=== PATIENT | male | born 1930 | race Caucasian/White ===

== ENCOUNTER 2017-11-01 20:32 | Emergency (ER) | payer MEDICARE, BC ==
[~2017-11-01] VITALS: Ht 180.3 cm; Wt 86.4 kg
[2017-11-01 20:41] VITALS: Ht 180.3 cm; Wt 86.4 kg
[2017-11-01] MEDS ORDERED: ULTRAM50 MG PO (20:45)
[2017-11-01] MEDS ORDERED: METHOTREXATE2.5 MG PO (20:46)
[2017-11-01] MEDS ORDERED: FOLIC ACID1 MG PO (20:46)
[2017-11-01 21:56] LABS: BASOPHILS 1.1 % (0-2); EOSINOPHILS 2.7 % (0-7); HEMATOCRIT 37.8 % (42.0-54.0); HEMOGLOBIN 12.6 g/dL (13.5-17.5); IMMATURE GRANULOCYTES 0.3 % (0-5); LYMPHOCYTES 24.9 % (15-50); MCHC 33.3 g/dL (31.0-37.0); MEAN PLATELET VOLUME 9.1 fL (7.4-10.4); MONOCYTES 13.9 % (2-11); NEUTROPHILS 57.1 % (40-80); PLATELET COUNT 117 10x3/uL (130-400); RBC 3.82 10x6/uL (4.20-6.10); RDW 13.4 % (11.5-14.5); WBC 3.7 10x3/uL (4.8-10.8)
[2017-11-01 22:15] LABS: ALBUMIN 3.3 g/dL (3.4-5.0); ALKALINE PHOSPHATASE 65 U/L (46-116); ALT (SGPT) 30 U/L (10-68); BILIRUBIN - TOTAL 0.43 mg/dL (0.2-1.3); CALC OSMOLALITY 280 mosm/kg (275-300); CALCIUM 8.3 mg/dL (8.5-10.1); CARBON DIOXIDE 24.8 mmol/L (21.0-32.0); CHLORIDE - SERUM 106 mmol/L (98-107); CREATININE - SERUM 0.8 mg/dL (0.6-1.3); GLUCOSE 89 mg/dL (74-106); POTASSIUM - SERUM 3.9 mmol/L (3.5-5.1); PROTEIN - SERUM 6.6 g/dL (6.4-8.2); SODIUM 141 mmol/L (136-145); UREA NITROGEN 14 mg/dL (7-18); eGFR NON AFRICAN AMERICAN > 90 mL/min (90-120)
[2017-11-02 00:26] VITALS: BP 130/86
== END 2017-11-02 00:26 | disposition home or self-care (01) ==
LOC: D.ER 20:32
PROVIDERS: Family Medicine
DX: M54.5 Low back pain (principal); R07.81 Pleurodynia; S51.011A Laceration without foreign body of right elbow, initial encounter; W19.XXXA Unspecified fall, initial encounter; Y93.89 Activity, other specified; Y92.019 Unspecified place in single-family (private) house as the place of occurrence of the external cause

== ENCOUNTER 2018-10-18 17:31 | Inpatient (IN) | payer MEDICARE, BC ==
[~2018-10-18 17:31] MED LIST: FOLIC ACID1 MG PO; METHOTREXATE2.5 MG PO; ULTRAM50 MG PO
[2018-10-18 18:02] LABS: APPEARANCE CLEAR (CLEAR); BILIRUBIN NEGATIVE (NEGATIVE); COLOR YELLOW (YELLOW); GLUCOSE NEGATIVE (NEGATIVE); KETONE NEGATIVE (NEGATIVE); NITRITE NEGATIVE (NEGATIVE); PROTEIN NEGATIVE (NEGATIVE); UROBILINOGEN NORMAL (NORMAL)
[2018-10-18 18:07] LABS: BASOPHILS 3.5 % (0-2); EOSINOPHILS 3.5 % (0-7); HEMATOCRIT 37.2 % (42.0-54.0); HEMOGLOBIN 12.6 g/dL (13.5-17.5); LYMPHOCYTES 28.9 % (15-50); MCH 30.1 pg (26.0-34.0); MCHC 33.9 g/dL (31.0-37.0); MEAN PLATELET VOLUME 9.7 fL (7.4-10.4); MONOCYTES 14.2 % (2-11); NEUTROPHILS 49.9 % (40-80); RBC 4.18 10x6/uL (4.20-6.10); RDW 12.1 % (11.5-14.5); WBC 3.7 10x3/uL (4.8-10.8)
[2018-10-18 18:08] LABS: PLATELET COUNT 165 10x3/uL (130-400)
[2018-10-18 18:24] LABS: ALBUMIN 2.9 g/dL (3.4-5.0); ALKALINE PHOSPHATASE 72 U/L (46-116); ALT (SGPT) 18 U/L (10-68); BILIRUBIN - TOTAL 0.42 mg/dL (0.2-1.3); CALC OSMOLALITY 279 mosm/kg (275-300); CALCIUM 8.6 mg/dL (8.5-10.1); CARBON DIOXIDE 30.5 mmol/L (21.0-32.0); CHLORIDE - SERUM 105 mmol/L (98-107); CREATININE - SERUM 0.9 mg/dL (0.6-1.3); GLUCOSE 116 mg/dL (74-106); POTASSIUM - SERUM 3.6 mmol/L (3.5-5.1); PROTEIN - SERUM 6.1 g/dL (6.4-8.2); SODIUM 140 mmol/L (136-145); UREA NITROGEN 12 mg/dL (7-18); eGFR NON AFRICAN AMERICAN 85 mL/min (90-120)
--- NOTE | 2018-10-18 19:10 | NUR ---
BS REPORT TO AMOS PALACIOS BY SBAR FORMAT
[2018-10-18 19:36] VITALS: BP 157/80
--- NOTE | 2018-10-18 21:40 | NUR ---
ROCEPHIN INFUSION COMPLETE
[2018-10-18 22:04] VITALS: BP 168/75
--- NOTE | 2018-10-18 22:43 | NUR ---
PT TO FLOOR VIA BED. ASSISTED PT TO BED IN ROOM. PT DENIES WEAKNESS AT THIS TIME. PT A/O X 4. PT UP WITH ASSISTANCE TO BATHROOM. 20 G IV TO L FA, NS @ 100 ML/HR. RM AIR, BREATHING EVEN AND UNLABORED. TELE APPLIED. SKIN INTACT, WARM AND DRY. DENIES FURTHER CONCERNS AT THIS TIME. VIKY MAT IN PLACE. YELLOW GOWN ON, NON SKID SOCKS ON. SR UP X 2. BED LOWERED AND LOCKED. CL IN [facility]. WILL CTM.
--- NOTE | 2018-10-18 22:50 | NUR ---
PT STATED WOULD BRING LIST OF HOME MEDICATIONS TOMORROW, HE STATED THAT HE COULD NOT RECALL HIS HOME MEDICATIONS.
--- NOTE | 2018-10-18 23:15 | NUR ---
PT TO CT VIA WHEELCHAIR
[2018-10-19] VITALS (7 sets, daily range): BP systolic 104–164; BP diastolic 57–82; BMI 24.7; BMI 24.6
[2018-10-19 06:56] LABS: EOSINOPHILS 4.6 % (0-7); HEMATOCRIT 36.6 % (42.0-54.0); HEMOGLOBIN 12.5 g/dL (13.5-17.5); IMMATURE GRANULOCYTES 0.3 % (0-5); LYMPHOCYTES 32.2 % (15-50); MCH 30.1 pg (26.0-34.0); MCHC 34.2 g/dL (31.0-37.0); MCV 88.2 fL (80.0-100.0); MONOCYTES 18.5 % (2-11); NEUTROPHILS 40.4 % (40-80); PLATELET COUNT 166 10x3/uL (130-400); RBC 4.15 10x6/uL (4.20-6.10); RDW 12.2 % (11.5-14.5); WBC 3.3 10x3/uL (4.8-10.8)
[2018-10-19 07:11] LABS: CALC OSMOLALITY 283 mosm/kg (275-300); CALCIUM 8.7 mg/dL (8.5-10.1); CARBON DIOXIDE 28.7 mmol/L (21.0-32.0); CHLORIDE - SERUM 107 mmol/L (98-107); CREATININE - SERUM 0.7 mg/dL (0.6-1.3); GLUCOSE 92 mg/dL (74-106); MAGNESIUM - SERUM 2.1 mg/dL (1.8-2.4); POTASSIUM - SERUM 3.6 mmol/L (3.5-5.1); SODIUM 143 mmol/L (136-145); UREA NITROGEN 10 mg/dL (7-18); eGFR NON AFRICAN AMERICAN > 90 mL/min (90-120)
--- NOTE | 2018-10-19 07:29 | NUR ---
REPORT RECEIVED. WILL CONTINUE WITH POC. PT CURRENTLY LYING SUPINE. CALL LIGHT W/I REACH. PT IS RESTING AT THE MOMENT. RR EVEN AND UNLABORED ON RA. NS INFUSING @75ML/HR VIA L.FOR PIV. FALL PRECAUTIONS IN PLACE. PT DENIES ANY NEEDS AT THIS TIME. NO S/S OF DISTRESS NOTED. WILL CTM.
--- NOTE | 2018-10-19 08:10 | NUR ---
ENTERED THE ROOM AND THE BED ALARM STARTED TO GO OFF AND CAUGHT THE PATIENT GETTING OUT OF BED ON HIS OWN. SAT PATIENT BACK DOWN AND INSTRUCTED HIM ON THE IMPORTANCE OF USING HIS CALL LIGHT. PIV WAS REMOVED WITH CATHETER TIP FULLY INTACT AND LAYING ON THE FLOOR. PT STATED,"I DONT KNOW WHAT HAPPENED TO IT, IT JUST CAME OUT." WILL GAIN IV ACCESS ONCE PT FINISHES EATING BREAKFAST. PT ASSISTED TO AND FROM BATHROOM. PT CURRENTLY SITTING ON EDGE OF BED EATING. WILL CTM.
--- NOTE | 2018-10-19 09:58 | NUR ---
STARTED NEW PIV TO THE RIGHT FOR X1 ATTEMPT 22 GA. FLUSHED WITH 10ML NS TO CONFIRM PATENCY. PT TOLERATED WELL. PT CONFUSED TO PLACE AND PERSON. TELEMETRY APPLIED. PT DENIES ANY NEEDS. WILL CTM.
--- NOTE | 2018-10-19 19:27 | NUR ---
GREETED PATIENT AND INTRODUCED MYSELF. PATIENT IS LAYING IN BED. HAS HAD INCONTINENT ACCIDENT. CALL LIGHT IN REACH.
--- NOTE | 2018-10-19 21:19 | NUR ---
PATIENT ONCE AGAIN REMOVED TELEMETRY. PATIENT IS CONFUSED AND REFUSES TO KEEP IT ON. PHARMACEUTICAL SALES REPRESENTATIVE NOTIFIED.
--- NOTE | 2018-10-19 21:42 | MORECARE ---
CASE MANAGEMENT DISCHARGE SUMMARY PATIENT: RIZWAN ADAMES UNIT: [id number] ADM DATE: 10/18/18 AGE: 88 : 31 SEX: M ROOM/BED: D.1203 AUTHOR: STEWART,DOC PHYSICIAN: REFERRING PHYSICIAN: GRAYSON RDZ MD DATE OF SERVICE: 10/19/18 Discharge Plan Patient Name: RIZWAN ADAMES Facility: [facility]:[place] : 1930 Planned Disposition: Home Anticipated Discharge Date: Discharge Date: Expected LOS: Initial Reviewer: [email or web address] Initial Review Date: 10/19/2018 Generated: 10/19/18 10:41 pm Comments DCP- Discharge Planning Updated by [id number]: Marija Villeda on 10/19/18 8:[address] Patient Name: RIZWAN ADAMES Admission Status: ER Accout number: [id number] Admission Date: 10-18-2018 : 1930 Admission Diagnosis:WEAKNESS Attending: KENDELL, Current LOS: 1 Anticipated DC Date: Planned Disposition: Home Primary Insurance: MEDICARE A & B Discharge Planning Comments: CM met with patient at bedside after explaining CM role and obtaining verbal consent. Patient lives at home with his Nancy and plans to return there upon discharge. Patient feels this would be a safe discharge. CM discussed availability / needs of home health and medical equipment. Patient denies any discharge needs at this time. CM will continue to follow and assist as needed with discharge planning / needs. Machine Sole Leveler: Marija Villeda DCPIA - Discharge Planning Initial Assessment Updated by [email or web address]: Marija Villeda on 10/19/18 9:38 pm * Is the patient Alert and Oriented? Yes * How many steps to enter\exit or inside your home? * PCP ADELINA - [facility] * Pharmacy CAN'T REMEMBER * Preadmission Environment Home with Family * ADLs Independent * Other Equipment WALKER, CANE, SHOWER CHAIR, GRAB BARS * List name and contact numbers for known caregivers / representatives who currently or will assist patient after discharge: NANCY ADAMES - - [phone] * Verbal permission to speak to the caregivers and representatives has been obtained from the patient. Yes * Community resources currently utilized None * Additional services required to return to the preadmission environment? No * Can the patient safely return to the preadmission environment? Yes * Has this patient been hospitalized within the prior 30 days at any hospital? No Patient Name: RIZWAN ADAMES Page [id number] at 2142 All edits/amendments must be made on the electronic document DICTATION DATE: 10/19/182140 TOUR AGENT: TIMOTHY 10/19/182140 RPT#: [id number] DC DATE: STATUS: ADM IN [facility] [address] [place] [address] END OF REPORT
--- NOTE | 2018-10-19 22:11 | NUR ---
PATIENT CLEANED OF INCONTINENT BM. COMPLETE LINEN CHANGE. REPOSTIONED FOR COMFORT. CALL LIGHT IN REACH.
[2018-10-20 00:43] VITALS: BP 132/68
[2018-10-20 04:00] VITALS: BP 127/61
[2018-10-20 06:50] LABS: BASOPHILS 5.8 % (0-2); EOSINOPHILS 6.1 % (0-7); HEMATOCRIT 36.4 % (42.0-54.0); HEMOGLOBIN 12.4 g/dL (13.5-17.5); LYMPHOCYTES 39.7 % (15-50); MCHC 34.1 g/dL (31.0-37.0); MCV 88.1 fL (80.0-100.0); MEAN PLATELET VOLUME 9.8 fL (7.4-10.4); MONOCYTES 17.5 % (2-11); NEUTROPHILS 30.9 % (40-80); PLATELET COUNT 150 10x3/uL (130-400); RBC 4.13 10x6/uL (4.20-6.10); RDW 12.4 % (11.5-14.5); WBC 4.1 10x3/uL (4.8-10.8)
[2018-10-20 07:04] LABS: CALC OSMOLALITY 280 mosm/kg (275-300); CALCIUM 8.4 mg/dL (8.5-10.1); CARBON DIOXIDE 29.2 mmol/L (21.0-32.0); CHLORIDE - SERUM 106 mmol/L (98-107); CREATININE - SERUM 0.7 mg/dL (0.6-1.3); GLUCOSE 100 mg/dL (74-106); MAGNESIUM - SERUM 2.1 mg/dL (1.8-2.4); PHOSPHOROUS 3.1 mg/dL (2.5-4.9); POTASSIUM - SERUM 3.7 mmol/L (3.5-5.1); SODIUM 141 mmol/L (136-145); UREA NITROGEN 12 mg/dL (7-18); eGFR NON AFRICAN AMERICAN > 90 mL/min (90-120)
[2018-10-20 09:14] VITALS: BP 121/63
--- NOTE | 2018-10-20 10:06 | NUR ---
MORNING ASSESSMENT COMPLETE. SEE ASSESSMENT FLOWSHEET FOR FURHTER DETIALS. PT LYING IN BED AAO X4 TO PERSON, PLACE, TIME, AND SITUAITON. DENIES NEEDS AT THIS TIME. CL IN REACH. SIDE RAILS UP X3 FOR PT SAFETY. FALL PRECAUTIONS IN PLACE.
[2018-10-20] MEDS ORDERED: AUGMENTIN 875-11 TAB PO (11:17)
--- NOTE | 2018-10-20 14:30 | MORECARE ---
CASE MANAGEMENT DISCHARGE SUMMARY PATIENT: RIZWAN ADAMES UNIT: [id number] ADM DATE: 10/18/18 AGE: 88 : 31 SEX: M ROOM/BED: D.1203 AUTHOR: STEWARTDOC PHYSICIAN: REFERRING PHYSICIAN: GRAYSON RDZ MD DATE OF SERVICE: 10/20/18 Discharge Plan Patient Name: RIZWAN ADAMES Facility: [facility]:[place] : 1930 Planned Disposition: Home Anticipated Discharge Date: Discharge Date: Expected LOS: Initial Reviewer: [email or web address] Initial Review Date: 10/19/2018 Generated: 10/20/18 3:30 pm Comments DCP- Discharge Planning Updated by [id number]: Nellie Hernandez on 10/20/18 1:[address] Patient Name: RIZWAN ADAMES Admission Status: ER Accout number: [id number] Admission Date: 10-18-2018 : 1930 Admission Diagnosis:WEAKNESS Attending: KENDELL, Current LOS: 2 Anticipated DC Date: Planned Disposition: Home Primary Insurance: MEDICARE A & B Discharge Planning Comments: CM HAS TRIED TO REACH SPOUSE NANCY ABOUT THE DC OF HER . THE NUMBERS PROVIDED ARE NOT CORRECT.. [place] AND [place] [employer] AND ASKED IF THEY COULD DO A WELFARE CHECK AND HAVE SPOUSE CALL ME ANTONY. THEY STATED THEY WOULD GO BY THE HOME AND RELAY MESSAGE. CM WILL AWAIT TO HEAR FROM SPOUSE Sweatband Separator: Nellie Pandaman DCP- Discharge Planning Updated by [email or web address]: Marija Villeda on 10/19/18 8:[address] Patient Name: RIZWAN ADAMES Admission Status: ER Accout number: [id number] Admission Date: 10-18-2018 : 1930 Admission Diagnosis:WEAKNESS Attending: KENDELL, Current LOS: 1 Anticipated DC Date: Planned Disposition: Home Primary Insurance: MEDICARE A & B Discharge Planning Comments: CM met with patient at bedside after explaining CM role and obtaining verbal consent. Patient lives at home with his Nancy and plans to return there upon discharge. Patient feels this would be a safe discharge. CM discussed availability / needs of home health and medical equipment. Patient denies any discharge needs at this time. CM will continue to follow and assist as needed with discharge planning / needs. Sweatband Separator: Marija Villeda DCPIA - Discharge Planning Initial Assessment Updated by [email or web address]: Marija Villeda on 10/19/18 9:38 pm * Is the patient Alert and Oriented? Yes * How many steps to enter\exit or inside your home? * PCP ADELINA - [facility] * Pharmacy CAN'T REMEMBER * Preadmission Environment Home with Family * ADLs Independent * Other Equipment WALKER, CANE, SHOWER CHAIR, GRAB BARS * List name and contact numbers for known caregivers / representatives who currently or will assist patient after discharge: NANCY ADAMES - - [phone] * Verbal permission to speak to the caregivers and representatives has been obtained from the patient. Yes * Community resources currently utilized None * Additional services required to return to the preadmission environment? No * Can the patient safely return to the preadmission environment? Yes * Has this patient been hospitalized within the prior 30 days at any hospital? No Last DP export: 10/19/18 8:41 p Patient Name: RIZWAN ADAMES Page 16697 at 1430 All edits/amendments must be made on the electronic document DICTATION DATE: 10/20/181429 ATHLETIC FIELD CUSTODIAN: TIMOTHY 10/20/181429 RPT#: [id number] DC DATE: STATUS: ADM IN [facility] [address] [place] [address] END OF REPORT
--- NOTE | 2018-10-20 14:53 | MORECARE ---
CASE MANAGEMENT DISCHARGE SUMMARY PATIENT: RIZWAN ADAMES UNIT: [id number] ADM DATE: 10/18/18 AGE: 88 : 31 SEX: M ROOM/BED: D.1203 AUTHOR: STEWARTDOC PHYSICIAN: REFERRING PHYSICIAN: GRAYSON RDZ MD DATE OF SERVICE: 10/20/18 Discharge Plan Patient Name: RIZWAN ADAMES Facility: [facility]:[place] : 1930 Planned Disposition: Home Anticipated Discharge Date: Discharge Date: Expected LOS: Initial Reviewer: [email or web address] Initial Review Date: 10/19/2018 Generated: 10/20/18 3:52 pm Comments DCP- Discharge Planning Updated by [email or web address]: Nellie Hernandez on 10/20/18 1:[address] Patient Name: RIZWAN ADAMES Admission Status: ER Accout number: [id number] Admission Date: 10-18-2018 : 1930 Admission Diagnosis:WEAKNESS Attending: KENDELL, Current LOS: 2 Anticipated DC Date: Planned Disposition: Home Primary Insurance: MEDICARE A & B Discharge Planning Comments: CM HAS TRIED TO REACH SPOUSE NANCY ABOUT THE DC OF HER . THE NUMBERS PROVIDED ARE NOT CORRECT.. [place] AND I [place] [employer] AND ASKED IF THEY COULD DO A WELFARE CHECK AND HAVE SPOUSE CALL ME ANTONY. THEY STATED THEY WOULD GO BY THE HOME AND RELAY MESSAGE. CM WILL AWAIT TO HEAR FROM SPOUSE 244PM [employer] CALLED BACK AND STATED WAS AT HOME BUT THERE IS NO WAY SHE CAN SILK WORKER . THEY STATED SHE DOES NOT DRIVE AT ALL. THE NANCY GAVE THEM A PHONE NUMBER AND GAVE HER MINE WELL. SHE HAS NOT CALLED ME OF YET. I CALLED NUMBER THAT SHE GAVE TO THE PD AND IT IS A NON WORKING NUMBER WELL. HE SPOUSE TOLD THE POLICE OFFICERS THAT HE WOULD HAVE TO RETURN HOME BY AMBULANCE. I SPOKE TO PT ABOUT HH AND HE DID NOT HAVE A PREFERENCE . HE CHOSE [facility] FOR PT OT [facility] SIGNED Linux Network Administrator: Nellie Hernandez DCP- Discharge Planning Updated by [email or web address]: Marija Villeda on 10/19/18 8:[address] Patient Name: RIZWAN ADAMES Admission Status: ER Accout number: [id number] Admission Date: 10-18-2018 : 1930 Admission Diagnosis:WEAKNESS Attending: KENDELL, Current LOS: 1 Anticipated DC Date: Planned Disposition: Home Primary Insurance: MEDICARE A & B Discharge Planning Comments: CM met with patient at bedside after explaining CM role and obtaining verbal consent. Patient lives at home with his Nancy and plans to return there upon discharge. Patient feels this would be a safe discharge. CM discussed availability / needs of home health and medical equipment. Patient denies any discharge needs at this time. CM will continue to follow and assist as needed with discharge planning / needs. Linux Network Administrator: Marija Villeda DCPIA - Discharge Planning Initial Assessment Updated by [email or web address]: Marija Villeda on 10/19/18 9:38 pm * Is the patient Alert and Oriented? Yes * How many steps to enter\exit or inside your home? * PCP [facility] - [facility] * Pharmacy CAN'T REMEMBER * Preadmission Environment Home with Family * ADLs Independent * Other Equipment WALKER, CANE, SHOWER CHAIR, GRAB BARS * List name and contact numbers for known caregivers / representatives who currently or will assist patient after discharge: NANCY ADAMES - - [phone] * Verbal permission to speak to the caregivers and representatives has been obtained from the patient. Yes * Community resources currently utilized None * Additional services required to return to the preadmission environment? No * Can the patient safely return to the preadmission environment? Yes * Has this patient been hospitalized within the prior 30 days at any hospital? No Last DP export: 10/20/18 1:30 p Patient Name: RIZWAN ADAMES Page [phone] at 1453 All edits/amendments must be made on the electronic document DICTATION DATE: 10/20/181451 CONCRETE POURER: TIMOTHY 10/20/181451 RPT#: [id number] DC DATE: STATUS: ADM IN [facility] [address] [place] [address] END OF REPORT
--- NOTE | 2018-10-20 15:06 | MORECARE ---
CASE MANAGEMENT DISCHARGE SUMMARY PATIENT: RIZWAN ADAMES UNIT: [id number] ADM DATE: 10/18/18 AGE: 88 : 31 SEX: M ROOM/BED: D.1203 AUTHOR: STEWART,DOC PHYSICIAN: REFERRING PHYSICIAN: GRAYSON RDZ MD DATE OF SERVICE: 10/20/18 Discharge Plan Patient Name: RIZWAN ADAMES Facility: [facility]:[place] : 1930 Planned Disposition: Home Anticipated Discharge Date: Discharge Date: Expected LOS: Initial Reviewer: [email or web address] Initial Review Date: 10/19/2018 Generated: 10/20/18 4:05 pm Comments DCP- Discharge Planning Updated by [email or web address]: Nellie Hernandez on 10/20/18 2:[address] Patient Name: RIZWAN ADAMES Admission Status: ER Accout number: [id number] Admission Date: 10-18-2018 : 1930 Admission Diagnosis:WEAKNESS Attending: KENDELL, Current LOS: 2 Anticipated DC Date: Planned Disposition: Home Primary Insurance: MEDICARE A & B Discharge Planning Comments: CM HAS TRIED TO REACH SPOUSE NANCY ABOUT THE DC OF HER . THE NUMBERS PROVIDED ARE NOT CORRECT.. [place] AND [place] CALL[place] [employer] AND ASKED IF THEY COULD DO A WELFARE CHECK AND HAVE SPOUSE CALL ME ANTONY. THEY STATED THEY WOULD GO BY THE HOME AND RELAY MESSAGE. CM WILL AWAIT TO HEAR FROM SPOUSE 244PM [employer] CALLED BACK AND STATED WAS AT HOME BUT THERE IS NO WAY SHE CAN STUDENT COUNSELLOR . THEY STATED SHE DOES NOT DRIVE AT ALL. THE NANCY GAVE THEM A PHONE NUMBER AND GAVE HER MINE WELL. SHE HAS NOT CALLED ME OF YET. I CALLED NUMBER THAT SHE GAVE TO THE PD AND IT IS A NON WORKING NUMBER WELL. HE SPOUSE TOLD THE POLICE OFFICERS THAT HE WOULD HAVE TO RETURN HOME BY AMBULANCE. I SPOKE TO PT ABOUT HH AND HE DID NOT HAVE A PREFERENCE . HE CHOSE [facility] FOR PT OT [facility]ICES SIGNED TORIE PARTS PRODUCT ANALYST NURSE FOR [facility] NOTIFIED OF DC AND INFO FAXED TO OFFICE. Production Supervisor Trainee: Nellie Hernandez DCP- Discharge Planning Updated by [id number]: Marija Villeda on 10/19/18 8:[address] Patient Name: RIZWAN ADAMES Admission Status: ER Accout number: [id number] Admission Date: 10-18-2018 : 1930 Admission Diagnosis:WEAKNESS Attending: KENDELL, Current LOS: 1 Anticipated DC Date: Planned Disposition: Home Primary Insurance: MEDICARE A & B Discharge Planning Comments: CM met with patient at bedside after explaining CM role and obtaining verbal consent. Patient lives at home with his Nancy and plans to return there upon discharge. Patient feels this would be a safe discharge. CM discussed availability / needs of home health and medical equipment. Patient denies any discharge needs at this time. CM will continue to follow and assist as needed with discharge planning / needs. Production Supervisor Trainee: Marija ORTIZ - Discharge Planning Initial Assessment Updated by [id number]: Marija Villeda on 10/19/18 9:38 pm * Is the patient Alert and Oriented? Yes * How many steps to enter\exit or inside your home? * PCP [facility] - [facility] * Pharmacy CAN'T REMEMBER * Preadmission Environment Home with Family * ADLs Independent * Other Equipment WALKER, CANE, SHOWER CHAIR, GRAB BARS * List name and contact numbers for known caregivers / representatives who currently or will assist patient after discharge: NANCY ADAMES - - [phone] * Verbal permission to speak to the caregivers and representatives has been obtained from the patient. Yes * Community resources currently utilized None * Additional services required to return to the preadmission environment? No * Can the patient safely return to the preadmission environment? Yes * Has this patient been hospitalized within the prior 30 days at any hospital? No Last DP export: 10/20/18 1:53 p Patient Name: RIZWAN ADAMES Page 43649 at 1506 All edits/amendments must be made on the electronic document DICTATION DATE: 10/20/18 150 GRAIN WAFER MACHINE OPERATOR: TIMOTHY 10/20/18 1505 RPT#: [id number] DC DATE: STATUS: ADM IN [facility] [address] [place] [address] END OF REPORT
--- NOTE | 2018-10-21 11:00 | MORECARE ---
CASE MANAGEMENT DISCHARGE SUMMARY PATIENT: RIZWAN ADAMES UNIT: [id number] ADM DATE: 10/18/18 AGE: 88 : 31 SEX: M ROOM/BED: D.1203 AUTHOR: STEWART,DOC PHYSICIAN: REFERRING PHYSICIAN: GRAYSON RDZ MD DATE OF SERVICE: 10/21/18 Discharge Plan Patient Name: RIZWAN ADAMES Facility: [facility]:[place] : 1930 Planned Disposition: Home Anticipated Discharge Date: Discharge Date: 10/20/2018 Expected LOS: Initial Reviewer: [id number] Initial Review Date: 10/19/2018 Generated: 10/21/18 11:59 am Comments DCP- Discharge Planning Updated by [email or web address]: Nellie Hernandez on 10/20/18 2:[address] Patient Name: RIZWAN ADAMES Admission Status: ER Accout number: [id number] Admission Date: 10-18-2018 : 1930 Admission Diagnosis:WEAKNESS Attending: KENDELL, Current LOS: 2 Anticipated DC Date: Planned Disposition: Home Primary Insurance: MEDICARE A & B Discharge Planning Comments: CM HAS TRIED TO REACH SPOUSE NANCY ABOUT THE DC OF HER . THE NUMBERS PROVIDED ARE NOT CORRECT.. [place] AND I CALL[place] [employer] AND ASKED IF THEY COULD DO A WELFARE CHECK AND HAVE SPOUSE CALL ME ANTONY. THEY STATED THEY WOULD GO BY THE HOME AND RELAY MESSAGE. CM WILL AWAIT TO HEAR FROM SPOUSE 244PM [employer] CALLED BACK AND STATED WAS AT HOME BUT THERE IS NO WAY SHE CAN PEDIATRIC AUDIOLOGIST . THEY STATED SHE DOES NOT DRIVE AT ALL. THE NANCY GAVE THEM A PHONE NUMBER AND GAVE HER MINE WELL. SHE HAS NOT CALLED ME OF YET. I CALLED NUMBER THAT SHE GAVE TO THE PD AND IT IS A NON WORKING NUMBER WELL. HE SPOUSE TOLD THE POLICE OFFICERS THAT HE WOULD HAVE TO RETURN HOME BY AMBULANCE. I SPOKE TO PT ABOUT HH AND HE DID NOT HAVE A PREFERENCE . HE CHOSE [facility] FOR PT OT [facility] SIGNED TORIE MEDICAL SOCIOLOGIST NURSE FOR [facility] NOTIFIED OF DC AND INFO FAXED TO OFFICE. Marketing Segment Manager: Nellie Hernandez DCP- Discharge Planning Updated by [email or web address]: Marija Villeda on 10/19/18 8:[address] Patient Name: RIZWAN ADAMES Admission Status: ER Accout number: [id number] Admission Date: 10-18-2018 : 1930 Admission Diagnosis:WEAKNESS Attending: KENDELL, Current LOS: 1 Anticipated DC Date: Planned Disposition: Home Primary Insurance: MEDICARE A & B Discharge Planning Comments: CM met with patient at bedside after explaining CM role and obtaining verbal consent. Patient lives at home with his Nancy and plans to return there upon discharge. Patient feels this would be a safe discharge. CM discussed availability / needs of home health and medical equipment. Patient denies any discharge needs at this time. CM will continue to follow and assist as needed with discharge planning / needs. Marketing Segment Manager: Marija Villeda DIANA - Discharge Planning Initial Assessment Updated by [id number]: Marija Quiñonesr on 10/19/18 9:38 pm * Is the patient Alert and Oriented? Yes * How many steps to enter\exit or inside your home? * PCP ADELINA - [facility] * Pharmacy CAN'T REMEMBER * Preadmission Environment Home with Family * ADLs Independent * Other Equipment WALKER, CANE, SHOWER CHAIR, GRAB BARS * List name and contact numbers for known caregivers / representatives who currently or will assist patient after discharge: NANCY ADAMES - - [phone] * Verbal permission to speak to the caregivers and representatives has been obtained from the patient. Yes * Community resources currently utilized None * Additional services required to return to the preadmission environment? No * Can the patient safely return to the preadmission environment? Yes * Has this patient been hospitalized within the prior 30 days at any hospital? No Coverage Notice Reviewer: HAO Hernandez Notice Issued Date-Time: 10/20/2018 15:30 Notice Type: IM Discharge Notice Notice Delivered To: Family Member Relationship to Patient: Spouse Design Center Consultant Name: NANCY Delivery Method: PHONE - Phone Fozia Days: Prior Verbal Notification: Recipient Understood Notice: Yes Recipient Signature: Yes Med Rec Note Co-signed by Attending: Coverage Notice Comment: Reviewer: HAO Hernandez Notice Issued Date-Time: 10/20/2018 15:30 Notice Type: Patient Choice Letter Notice Delivered To: Family Member Relationship to Patient: Spouse Design Center Consultant Name: NANCY Delivery Method: PHONE - Phone Fozia Days: Prior Verbal Notification: Recipient Understood Notice: Yes Recipient Signature: Yes Med Rec Note Co-signed by Attending: Coverage Notice Comment: Last DP export: 10/20/18 2:05 p Patient Name: RIZWAN ADAMES Page 36544 at 1100 All edits/amendments must be made on the electronic document DICTATION DATE: 10/21/18 105 CORN GRINDER: TIMOTHY 10/21/18 1059 RPT#: [id number] DC DATE:10/20/18 STATUS: DIS IN [facility] [address] [place] [address] END OF REPORT
== END 2018-10-20 18:48 | disposition home health service (06) | DRG 884 ==
LOC: D.ER 17:31 → D.M3 20:08
PROVIDERS: Family Medicine; ADMIT Family Medicine; ATTEND Family Medicine
DX: R54 Age-related physical debility (principal); W06.XXXA Fall from bed, initial encounter; F03.90 Unspecified dementia, unspecified severity, without behavioral disturbance, psychotic disturbance, mood disturbance, and anxiety; I10 Essential (primary) hypertension; J44.9 Chronic obstructive pulmonary disease, unspecified; K59.00 Constipation, unspecified; M19.90 Unspecified osteoarthritis, unspecified site; R42 Dizziness and giddiness

== ENCOUNTER 2018-11-05 17:43 | Inpatient (IN) | payer MEDICARE, BC ==
[~2018-11-05] VITALS: Ht 180.3 cm; Wt 76.1 kg
[~2018-11-05 17:43] MED LIST changes: +AUGMENTIN 875-11 TAB PO
--- NOTE | 2018-11-05 18:42 | NUR ---
STRAIGHT CATH PERFORMED USING REPLANTING MACHINE OPERATOR WIH IMMED RTN CLEAR, PALE YELLOW URINE, PT RODRIGO WELL. URINE SPECIMEN OBTAINED, LABELED AT BS AND SENT TO LAB
--- NOTE | 2018-11-05 19:01 | NUR ---
BS REPORT TO AMOS QUINN BY SBAR FORMAT
--- NOTE | 2018-11-05 19:04 | NUR ---
PT RESTING ON BED, LAB AT PT BEDSIDE.
[2018-11-05 19:25] LABS: HEMATOCRIT 35.6 % (42.0-54.0); HEMOGLOBIN 11.8 g/dL (13.5-17.5); IMMATURE GRANULOCYTES 0.3 % (0-5); LYMPHOCYTES 23.5 % (15-50); MCH 29.4 pg (26.0-34.0); MCHC 33.1 g/dL (31.0-37.0); MCV 88.8 fL (80.0-100.0); MEAN PLATELET VOLUME 10.1 fL (7.4-10.4); MONOCYTES 14.5 % (2-11); NEUTROPHILS 58.7 % (40-80); RBC 4.01 10x6/uL (4.20-6.10); RDW 12.6 % (11.5-14.5)
[2018-11-05 19:26] LABS: APPEARANCE CLEAR (CLEAR); BILIRUBIN NEGATIVE (NEGATIVE); COLOR YELLOW (YELLOW); GLUCOSE NEGATIVE (NEGATIVE); KETONE NEGATIVE (NEGATIVE); NITRITE NEGATIVE (NEGATIVE); PROTEIN NEGATIVE (NEGATIVE); SPECIFIC GRAVITY 1.015 (1.005-1.020); UROBILINOGEN NORMAL (NORMAL)
[2018-11-05 19:28] LABS: PLATELET COUNT 219 10x3/uL (130-400)
[2018-11-05 19:36] LABS: INR 1.11 (0.85-1.17); PROTIME 13.8 SECONDS (11.6-15.0)
[2018-11-05 19:41] LABS: ALBUMIN 3.5 g/dL (3.4-5.0); ALKALINE PHOSPHATASE 74 U/L (46-116); ALT (SGPT) 23 U/L (10-68); BILIRUBIN - TOTAL 0.45 mg/dL (0.2-1.3); CALC OSMOLALITY 279 mosm/kg (275-300); CALCIUM 9.2 mg/dL (8.5-10.1); CARBON DIOXIDE 28.7 mmol/L (21.0-32.0); CHLORIDE - SERUM 102 mmol/L (98-107); GLUCOSE 110 mg/dL (74-106); POTASSIUM - SERUM 4.6 mmol/L (3.5-5.1); PROTEIN - SERUM 6.4 g/dL (6.4-8.2); SODIUM 139 mmol/L (136-145); UREA NITROGEN 16 mg/dL (7-18); eGFR NON AFRICAN AMERICAN 75 mL/min (90-120)
[2018-11-05 19:45] LABS: UDS - AMPHET NEGATIVE QUAL (NEGATIVE); UDS - BARB NEGATIVE QUAL (NEGATIVE); UDS - BENZO NEGATIVE QUAL (NEGATIVE); UDS - COCAINE NEGATIVE QUAL (NEGATIVE); UDS - OPIATE NEGATIVE QUAL (NEGATIVE); UDS - PCP NEGATIVE QUAL (NEGATIVE); UDS - THC NEGATIVE QUAL (NEGATIVE)
[2018-11-05 19:49] LABS: CHOL - HDL RATIO 3.1 ratio (2.3-4.9); CHOLESTEROL, TOTAL 157 mg/dL (0-200); HDL CHOLESTEROL 50 mg/dL (32-96); LDL CHOLESTEROL 89 mg/dL (0-100); LDL-HDL RATIO 1.8 ratio (1.5-3.5); MAGNESIUM - SERUM 2.4 mg/dL (1.8-2.4); THYROID STIMULATING HORMONE 1.28 uIU/mL (0.36-3.74); TRIGLYCERIDE 93 mg/dL (30-200)
[2018-11-05 20:09] VITALS: BP 128/64
--- NOTE | 2018-11-05 20:09 | NUR ---
PT SLEEPING ON BED. PT WAKES TO VERBAL STIMULI. PT DENIES NEEDS AT THIS TIME.
--- NOTE | 2018-11-05 20:13 | NUR ---
PT CHART SENT TO TYSON AT [facility]
--- NOTE | 2018-11-05 20:54 | NUR ---
RN SPOKE TO TYSON WITH [facility], PT ACCEPTED. EDP NOTIFIED.
[2018-11-06 02:38] VITALS: BP 135/73; BMI 25.8
--- NOTE | 2018-11-06 06:35 | NUR ---
Patient is new admit to Dr. Garcia from [facility] ED. RT Altered Mental Status and aggression. Patient is calm and cooperative upon admission, but confused. He is oriented to self only. Attempt to call his for telephone consent to treat x's 3. No response and voicemail not setup.
[2018-11-06 07:00] VITALS: BP 126/62
--- NOTE | 2018-11-06 07:00 | NUR ---
RECEIVED PATIENT IN HALLWAY, ALERT, RESTLESS, REQUIRING FREQUENT RE-DIRECTION TO REMAIN SEATED IN W/C DUE TO VERY UNSTEADY GAIT. MEDS ADMIN PER ORDERS. COOPERATIVE WITH POC. CONT POC INCLUDING MEDS AND GROUP THERAPY DIRECTED.
--- NOTE | 2018-11-06 07:45 | NUR ---
WHILE ATTEMPTING TO SIT IN W/C, PATIENT PLUNGED DOWN INTO THE CHAIR STRIKING HIS RIGHT ARM ON ARM OF CHAIR RESULTING IN A SKIN TEAR 3/8" WIDE X 2.5" LONG. CLEANED AND COVERED WITH MEPILEX BORDER.
--- NOTE | 2018-11-06 14:21 | NUR ---
ATTEMPTED TO REACH SPOUSE BY PHONE. NO ANSWER. RECORDING STATED THAT THERE HAS BEEN NO VOICEMAIL SET UP.
--- NOTE | 2018-11-06 14:48 | NUR ---
PATIENT REQUIRES FREQUENT RE-DIRECTION TO NOT ARISE FROM CHAIR WITHOUT ASSIST. PT BECOMES AGITATED AND CURSES WITH RE-DIRECTION. PATIENT REMAINS QUITE UNSTEADY.
--- NOTE | 2018-11-06 15:01 | NUR ---
SPOKE WITH PATIENT'S SPOUSE AND OBTAINED VERBAL CONSENT FOR TREATMENT. ALSO, THE PHONE NUMBER ON FILE WAS INCORRECT. PATIENT PROVIDED NEW PHONE NUMBER WHICH IS [phone].
--- NOTE | 2018-11-06 15:08 | NUR ---
PATIENT UP AMBULATING REQUIRING STANDBY ASSIST. PATIENT STATED THAT HE WAS GOING TO THE BAR.
[2018-11-06 15:09] VITALS: BMI 25.8
--- NOTE | 2018-11-06 17:15 | NUR ---
Lorazepam 0.5 mg and Haldol 2 mg admin IM, right deltoid for anxiety and aggression. Rudy well.
[2018-11-06 20:00] VITALS: BP 103/67
--- NOTE | 2018-11-06 21:33 | NUR ---
RECEIVED IN DAYROOM. RESTING IN A RECLINER WITH STAFF AND PEERS AT HIS SIDE. VERY CONFUSED. CALM AND COOPERATIVE WITH CARE AND ASSESSMENT. REDIRECT AND REORIENT NEEDED. RESTING IN BED WITH EYES CLOSED AT THIS TIME. CONTINUE PLAN OF CARE
[2018-11-07 09:09] LABS: FOLATE (FOLIC ACID) - SERUM >20.0 ng/mL (>3.0)
[2018-11-07 10:08] VITALS: BP 112/55
--- NOTE | 2018-11-07 10:59 | NUR ---
SW SPOKE TO HUMA PERSON. PT'S WANTS HIM TO GO TO HER PRIVATE PRISON. SW REPORTED WHEN PT IS MORE STABLE HE CAN BE ASSESSED FOR HER LEVEL OF CARE. MRS. PERSON VOICED UNDERSTANDING.
--- NOTE | 2018-11-07 12:04 | PSY ---
PATIENT NAME:RIZWAN ADAMES MEDICAL RECORD: [id number] : 32 LOCATION:[facility] ADMISSION DATE: 11/05/18 ACCOUNT: [id number] PSYCHIATRIC EVALUATION DATE OF EVALUATION: 11/06/18 IDENTIFYING DATA: The patient is 88 years old and he is admitted to the hospital secondary to confusion. CHIEF COMPLAINT: None. HISTORY OF PRESENT ILLNESS: The patient has known history of dementia. He apparently is living at home with his and has become combative and angry with her. She apparently had to lock herself in the bathroom and called the police because of his agitation. The patient has basically no recollection of these events. He is polite and cooperative, but clearly very impaired. He denies that he wants to hurt anyone or himself. In fact, he seems quite shocked when told about the circumstances that brought him here. He denies psychotic symptoms. PAST MEDICAL HISTORY: Significant for hypertension, COPD, prostate cancer. PAST PSYCHIATRIC HISTORY: Significant for alcohol abuse, although apparently he has not been drinking recently, that is according to him. I do not have it from any other source. He has an established diagnosis of dementia, but I am not sure of the type, although he clearly looks as though he has Alzheimer's. FAMILY HISTORY: Noncontributory. ALLERGIES: No known drug allergies. CURRENT MEDICATIONS: Include methotrexate, Ultram, folate. SOCIAL HISTORY: The patient is . He is retired from the post office. They have no children. He apparently has a history of alcohol abuse, although he is denying that it is any sort of significant problem and denies that he continues to drink so there is history that needs to be filled in by third constitution party. MENTAL STATUS EXAMINATION: The patient is awake, alert and oriented to person and place, and somewhat to time and situation. His mood is flat. His affect is constricted. Thought processes are circumstantial. Memory, concentration, and abstraction abilities are moderately impaired and he denies any active intent to harm himself or others as well as active psychotic symptoms. ASSETS: Supportive family members. LIABILITIES: Limited insight. DIAGNOSTIC IMPRESSION: AXIS I: Major neurocognitive disorder of the Alzheimer's type. AXIS II: None. AXIS III: Rheumatoid arthritis. AXIS IV: Moderate. AXIS V: Global assessment of functioning is 30. PLAN: At this time, the patient is admitted to the hospital secondary to agitated and aggressive behavior associated with a dementing illness and possibly a substance use disorder. He will be comprehensively evaluated and treated with both mood stabilizing and memory enhancing medications. His long-term prognosis is guarded and will be largely contingent upon abstinence from alcohol and regular mental health followup. TRANSINT:[id number] Voice Confirmation ID: [id number] DOCUMENT ID: [id number] KADE BENITES MD at 1204 CC: [id number] DICTATION DATE: 11/06/18 1233 SITE IDENTIFICATION SPECIALIST: 11/06/18 1308 ADM IN [place] [id number] [place] [id number]
[2018-11-07 14:24] VITALS: Ht 180.3 cm; Wt 76.1 kg
--- NOTE | 2018-11-07 14:53 | NUR ---
IS ORIENTED TO SELF ONLY.STATED"I'M AT A MONESTARY"WHEN ASKED.FREQUENTLY HAS TO BE REDIRECTED TO NOT GET UP OUT OF CHAIR WITHOUT ASSIST.WAS WALKED BY PT THIS AM.HAS UNSTEADY GAIT AND REQUIRES WALKER AND GAIT BELT.NO AGGRESSION OBSERVED.WILL CONTINUE WITH PLAN OF CARE,MONITOR FOR SAFETY AND CHANGES.
--- NOTE | 2018-11-07 20:56 | NUR ---
ATIVAN AND HALDOL GIVEN iM SECONDARY TO SCREAMING AND CURSING AT OTHER RESIDENTS. WILL CONTINUE TO MONITOR.
--- NOTE | 2018-11-07 20:58 | NUR ---
2000 LATE ENTRY MHT PETRA ZHU REPORTS SHE ASKED PT TO STRAIGHTEN UP IN CHAIR SECONDARY TO SLUMPING/ FEAR OF FALLING OVER. PT STANDS UP THEN SLIDES DOWN FROMT OF CHAIR, LANDING SOFTLY ON BUTTOCKS. CSTARS AND DRILL DOWN COMPLETED, ATTEMPTED TO REACH , NO ANSWER OR VM. WILL NOTIFY MOHINI OF EVENTS.
[2018-11-07 21:05] VITALS: BP 106/70
--- NOTE | 2018-11-08 00:37 | NUR ---
PT. IS SLEEPING, COMPLIANT WITH MEDS, WILL MONITOR
[2018-11-08 10:53] VITALS: BP 156/63
--- NOTE | 2018-11-08 13:25 | PN ---
PATIENT:RIZWAN ADAMES MEDICAL RECORD: [id number] LOCATION:[facility] ADMISSION DATE: 11/05/18 PROGRESS NOTE DATE OF SERVICE: 11/07/2018 SUBJECTIVE: The patient's case was discussed with staff. He has no new complaint. OBJECTIVE: The patient denies intent to harm himself or others. He is tolerating his medicines well. I am going to start him on a low dose of Klonopin to assist with any possible withdrawal symptoms from alcohol. His has been contacted. Apparently, he has been drinking lately. She says he has no children, even though he says he has two in [place]. ASSESSMENT: No change in diagnoses. PLAN: The patient will be treated with Klonopin. TRANSINT:[id number] Voice Confirmation ID: [id number] DOCUMENT ID: [id number] KADE BENITES MD at 1325 CC: [id number] DICTATION DATE: 11/07/18 1246 ROOM SERVICE ASSOCIATE: 11/07/18 1330 ADM IN [place] [id number] [place] [address]
--- NOTE | 2018-11-08 14:00 | NUR ---
PATIENT HAS BEEN DROWSY DURING SHIFT. 1330 TRAMDOL 50 MG HELD PER NURSING JUDGEMENT. WILL REASSESS Q 1 HOUR.
--- NOTE | 2018-11-08 15:38 | NUR ---
PATIENT AND OTHER VISITOR CAME TO VISIT PATIENT. ENVELOPE WAS GIVEN TO THIS NURSE FOR DESIGN CHECKER. THIS NURSE PLACED ENVELOPE IN DESIGN CHECKER OFFICE AND NOTIFIED CHARGE NURSE.
--- NOTE | 2018-11-08 15:43 | NUR ---
PATIENT HAS HAD A SHOWER AND NO C/O OF PAIN VOICED AT THIS TIME.
--- NOTE | 2018-11-08 17:55 | NUR ---
PATIENT SITTING IN CHAIR IN DAY AREA ASKING STAFF MEMBERS TO DANCE WITH HIM. PT REQUIRES ASSISTANCE WITH AMBULATION 2X. CHAIR ALARM IN PLACE. CONFUSION NOTED AT TIMES. PT DID KNOW IT WAS A HOLIDAY. SPOKE WITH STAFF ABOUT LIFE AND JOB. PT ATE PARTICAL MEALS. MED COMPLIANT. WILL CONT PLAN OF CARE.
[2018-11-08 21:04] VITALS: BP 100/56
--- NOTE | 2018-11-08 21:49 | NUR ---
PATIENT CONFUSED, SOMEWHAT QUIET THIS EVENING. COMPLIANT WITH MEDS, NEEDS HELP WITH ADL'S, NO ADVERSE REACTION NOTED. WILLL FOLLOW POC
--- NOTE | 2018-11-09 07:22 | NUR ---
B) The patient is awake and alert this am, he is oriented to person. He has poor insight into his situation. He has not shown any aggression this am. He does like to talk and interact with staff. I) Provide prescribed meds. R) The patient is compliant with meds and unit milieu. P) Continue POC.
[2018-11-09 09:16] VITALS: BP 128/71
--- NOTE | 2018-11-09 10:05 | NUR ---
Nutrition follow-up: Diet: Regular PO intake 60% average of last 9 meals Labs reviewed last weight 185# +BM RDN following.
--- NOTE | 2018-11-09 13:51 | PN ---
PATIENT:RIZWAN ADAMES MEDICAL RECORD: [id number] LOCATION:[facility] ADMISSION DATE: 11/05/18 PROGRESS NOTE DATE OF SERVICE: 11/08/2018 SUBJECTIVE: The patient's case was discussed with staff. He has no new complaint. OBJECTIVE: The patient is tolerating his medicines well. He has not been agitated. He has not shown any evidence of alcohol withdrawal. ASSESSMENT: No change in diagnoses. PLAN: Current medicines have been reviewed. I am going to continue them and we will start him on Aricept at a dose of 5 mg at bedtime to assist with thought disorganization and memory impairment. He will be monitored for clinical changes associated with its use. TRANSINT:[id number] Voice Confirmation ID: [id number] DOCUMENT ID: [id number] KADE BENITES MD at 1351 CC: [id number] DICTATION DATE: 11/08/18 1430 TRANSPORT PILOT: 11/08/18 1741 ADM IN [place] [id number] [place] [address]
[2018-11-09 20:23] VITALS: BP 118/60
--- NOTE | 2018-11-09 22:01 | NUR ---
B.) Patient is alert and oriented to self only. I.) Provided PM medications. Redirected and Reoriented. Educated on Fall risk and importance of assistance. R.) Compliant with all medications. Remains confused despite numerous times of reorientation. He verbalizes the importance of assistance with ambulation. P.) Continue Plan of Care
--- NOTE | 2018-11-10 07:42 | NUR ---
B) The patient is very confused. He yelled out and said "I need to go to the Dr." Let the patient know he is in the right place, the Dr. will be in today. He said "Well, I'm in the right place." The patient knows his name and he can carry on a conversation, but he has no insight into where he is or his situation. I) Provide prescribed meds. R) The patient is compliant with meds. P) Continue POC.
[2018-11-10 10:25] VITALS: BP 118/64
--- NOTE | 2018-11-10 11:33 | PN ---
PATIENT:RIZWAN ADAMES MEDICAL RECORD: [id number] LOCATION:[facility] ADMISSION DATE: 11/05/18 PROGRESS NOTE DATE OF SERVICE: 11/09/2018 SUBJECTIVE: The patient's case was discussed with staff. He has no new complaint. OBJECTIVE: The patient showing no evidence of alcohol withdrawal. He certainly is quite confused. ASSESSMENT: No change in diagnoses. PLAN: I am going to taper the patient's Klonopin slightly. He will be monitored for clinical changes associated with this. I think that he is not going to have significant alcohol withdrawal symptoms, but I would be concerned about the possibility of him becoming anxious and agitated and I will watch him for this. TRANSINT:[id number] Voice Confirmation ID: [id number] DOCUMENT ID: [id number] KADE BENITES MD at 1133 CC: [id number] DICTATION DATE: 11/09/18 1515 CHECK PROCESSING CLERK: 11/09/18 2157 ADM IN [place] [id number] [place] [address]
[2018-11-10 20:24] VITALS: BP 133/81
--- NOTE | 2018-11-10 22:32 | NUR ---
B.) PATIENT IS ALERT. HE CONTINUES YELLING OUT RANDOM WORDS. HE HAS BECOME AGITATED WITH STAFF. I.) PROVIDED PM MEDICATIONS.REDIRECT AND REORIENT. R.) COMPLIANT WITH PM MEDICATONS. DESPITE MULTIPLE ATTEMPTS TO REDIRECT HE REMAINS CONFUSED. P.) CONTINUE PLAN OF CARE
[2018-11-11 07:00] VITALS: BP 133/63
--- NOTE | 2018-11-11 10:20 | NUR ---
CONFUSED AND DISORIENTED.COMPLIANT WITH STAFF AND MEDS.YELLS OUT HELP,HELP,ETC.WHEN ASKED WHAT HE NEEDS STATE'S "I DON'T KNOW."WILL CONTINUE WITH CURRENT PLAN OF CARE,MONITOR FOR CHANGES AND SAFETY.
--- NOTE | 2018-11-11 11:39 | PN ---
PATIENT:RIZWAN ADAMES MEDICAL RECORD: [id number] LOCATION:[facility] ADMISSION DATE: 11/05/18 PROGRESS NOTE DATE OF SERVICE: 11/10/2018 SUBJECTIVE: The patient's case was discussed with staff. He has no new complaint. OBJECTIVE: The patient is not showing any signs of alcohol withdrawal. His blood pressure and heart rate are normal. In fact his blood pressures are little low. ASSESSMENT: No change in diagnoses. PLAN: I am going to maintain the patient on his current medicines. His long-term prognosis is guarded. Supportive and educational interventions were made. TRANSINT:[id number] Voice Confirmation ID: [id number] DOCUMENT ID: [id number] KADE BENITES MD at 1139 CC: [id number] DICTATION DATE: 11/10/18 1131 COMPRESSOR STATION OPERATOR: 11/10/18 1316 ADM IN [place] [id number] [place] [address]
[2018-11-11 20:14] VITALS: BP 130/79
--- NOTE | 2018-11-11 20:59 | NUR ---
RECEIVED IN DAYROOM. SITTING IN A RECLINING CHAIR. YELLING OUT. THROWING THINGS. REDIRECT AND REORIENT NEEDED. RESTING IN BED WITH EYES CLOSED AT THIS TIME. CONTINUE PLAN OF CARE
[2018-11-12 07:00] VITALS: BP 101/60
--- NOTE | 2018-11-12 13:33 | NUR ---
PT IS AWAKE AND ALERT TO PERSON ONLY. CALM AMD COOPERATIVE WITH ASSESSMENT. BRUISE NOTED TO RIGHT SIDE OF PT'S BACK WITH SMALL OPEN AREA NOTED. PT DENIES ANY PAIN OR DISCOMFORT AT THIS TIME. NO AGGRESSION NOTED AT THIS TIME. PT YELLS OUT DURING SHIFT FOR NO APPARENT REASON. REDIRECT AND REORIENT NEEDED. PT. CAME TODAY TO WORK WITH PT. PT DID COOPERATIVE WITH PT. MED COMPLIANT. FALL PRECAUTIONS IN PLACE. WILL CPOC.
--- NOTE | 2018-11-12 14:42 | PN ---
PATIENT:RIZWAN ADAMES MEDICAL RECORD: [id number] LOCATION:[facility] ADMISSION DATE: 11/05/18 PROGRESS NOTE DATE OF SERVICE: 11/11/2018 SUBJECTIVE: The patient's case was discussed with staff. He has no new complaint. OBJECTIVE: The patient has been engaged in some yelling activity. He cannot express any kind of a problem or issue when it is addressed by staff. He is clearly quite confused and difficult to redirect. This seems to be new since the Klonopin was reduced. I am going to restart that medication at a higher dose. I think that will hopefully address some of his agitation. TRANSINT:[id number] Voice Confirmation ID: [id number] DOCUMENT ID: [id number] KADE BENITES MD at 1442 CC: [id number] DICTATION DATE: 11/11/18 1321 DISTRIBUTED GENERATION PROJECT MANAGER: 11/11/18 1655 ADM IN [place] [id number] [place] [address]
[2018-11-12 20:36] VITALS: BP 120/64
--- NOTE | 2018-11-12 23:18 | NUR ---
RECEIVED IN HALLWAY. SITTING IN A RECLINING CHAIR. YELLING OUT AT TIMES. NO SIGNS OF AGGRESSION. REDIRECT AND REORIENT NEEDED. RESTING IN RECLINER EYES CLOSED AT THIS TIME. CONTINUE PLAN OF CARE
[2018-11-13 09:13] VITALS: BP 111/61
--- NOTE | 2018-11-13 14:30 | PN ---
PATIENT:RIZWAN ADAMES MEDICAL RECORD: [id number] LOCATION:[facility] ADMISSION DATE: 11/05/18 PROGRESS NOTE DATE OF SERVICE: 11/12/2018 SUBJECTIVE: The patient's case was discussed with staff. He has no new complaint. OBJECTIVE: The patient is quite confused. He is eating reasonably well. Hospice is going to come and evaluate him. ASSESSMENT: No change in diagnoses. PLAN: Current medicines and therapies will be maintained. I anticipate the patient can be reasonably transitioned out of the hospital soon if this level of improvement continues. TRANSINT:[id number] Voice Confirmation ID: [id number] DOCUMENT ID: [id number] KADE BENITES MD at 1430 CC: [id number] DICTATION DATE: 11/12/18 1639 INSURANCE ACCOUNT EXECUTIVE: 11/12/18 2158 ADM IN [facility] [address] [place] [address]
--- NOTE | 2018-11-13 14:50 | NUR ---
DISORIENTED WITH CONFUSION NOTED. YELLS OUT IF IN PAIN WHEN WE TRY TO GET HIM UP. CALM AND COOPERATIVE WITH CARE AND ASSESSMENT. REDIRECT AND REORIENT NEEDED. FALL PRECAUTION IN PLACE. WILL CONTINUE POC.
[2018-11-13 19:27] VITALS: BP 110/59
--- NOTE | 2018-11-13 20:26 | NUR ---
RECEIVED IN DAYROOM. RESTING IN A RECLINER. CALM AND COOPERATIVE WITH CARE AND ASSESSMENT. YELLS OUT AT TIMES. NO SIGNS OF AGGRESSION. REDIRECT AND REORIENT NEEDED. CONTINUES TO SIT IN RECLINER. CONTINUE PLAN OF CARE
[2018-11-14 07:47] VITALS: BP 174/67
--- NOTE | 2018-11-14 12:24 | PN ---
PATIENT:RIZWAN ADAMES MEDICAL RECORD: [id number] LOCATION:[facility] ADMISSION DATE: 11/05/18 PROGRESS NOTE DATE OF SERVICE: 11/13/2018 SUBJECTIVE: The patient's case was discussed with staff. He has no new complaint. OBJECTIVE: The patient denies intent to harm himself or others. He tolerates his medicines well. Eye contact is fair. ASSESSMENT: No change in diagnoses. PLAN: Current medicines have been reviewed, both will be maintained. Long-term prognosis is guarded. TRANSINT:[id number] Voice Confirmation ID: [id number] DOCUMENT ID: [id number] KADE BENITES MD at 1224 CC: [id number] DICTATION DATE: 11/13/18 1446 LOCATION ANALYST: 11/13/18 1521 ADM IN [facility] [address] [place] [id number]
--- NOTE | 2018-11-14 14:08 | NUR ---
Pt sitting in reclining chair watching tv. Pt is awake and alert. Pt is calm and cooperative with assessment. Med compliant. Redirect and reorient as needed. Pt yells out for no reason at times. No aggression noted. Fall precautions in place. Will cpoc.
--- NOTE | 2018-11-14 15:05 | NUR ---
Nutrition follow-up: Diet change to regular mechanical soft with nectar thick liquids PO intake has declined further; Megace added Last BM 11/07 Wt: 168#; noted charted wt of 186# RDN will monitor wt closely RDN following.
[2018-11-14 20:00] VITALS: BP 126/76
--- NOTE | 2018-11-15 02:11 | NUR ---
B) Patient is alert and oriented to person, yelling out at times, quiet mos of the time, I) Administered scheduled medications as ordered, monitored for needs and for safety R) Mediation compliant, sleeping now quietly in bed, P) Continue plan of care.
[2018-11-15 09:54] VITALS: BP 126/63
--- NOTE | 2018-11-15 13:25 | PN ---
PATIENT:RIZWAN ADAMES MEDICAL RECORD: [id number] LOCATION:[facility] ADMISSION DATE: 11/05/18 PROGRESS NOTE DATE OF SERVICE: 11/14/2018 SUBJECTIVE: The patient's case was discussed with staff. He has no new complaint. OBJECTIVE: The patient is not eating well. He is sleeping well. He says his back is better. It does not hurt today. I do think he remembers things from day to day, but he says he is having no pain. The Duragesic patch does not seem to be making him sedated and he is not yelling out. ASSESSMENT: No change in diagnoses. PLAN: Brief supportive and educational interventions were made. Current medicines will be maintained. TRANSINT:[id number] Voice Confirmation ID: [id number] DOCUMENT ID: [id number] KADE BENITES MD at 1325 CC: [id number] DICTATION DATE: 11/14/18 1315 COMPLIANCE REVIEW OFFICER: 11/14/18 1343 ADM IN [place] [id number] [place] [address]
--- NOTE | 2018-11-15 13:30 | NUR ---
RECEIVED PATIENT IN DINING ROOM FOR B'FAST, ALERT, CALM, YELLING ALOUD FREQUENTLY. MEDS ADMIN PER ORDERS WITH COMPLETE MED COMPLIANCE NOTED. REQUIRES FREQUENT RE-DIRECTION TO REFRAIN FROM YELLING ALOUD. CONT POC DIRECTED.
--- NOTE | 2018-11-15 13:49 | NUR ---
Nutrition follow-up: participated in pt rounding @ 1100. Diet: Regular mechanical soft with nectar thick liquids PO intake ~30% average of 3 meals 11/14/18 Nursing reports increased confusion BM 11/14/18 RDN will order Ensure with meals to increase kcal, protein intake. RDN following.
[2018-11-15] MEDS ORDERED: DONEPEZIL HCL5 MG PO (14:45)
[2018-11-15] MEDS ORDERED: CELEXA20 MG PO (14:45)
[2018-11-15] MEDS ORDERED: MOBIC7.5 MG PO (14:46)
[2018-11-15] MEDS ORDERED: KLONOPIN0.5 MG PO (14:46)
[2018-11-15] MEDS ORDERED: PROTONIX40 MG PO (14:47)
[2018-11-15] MEDS ORDERED: MEGACE ES625 MG/5 M PO (14:47)
[2018-11-15] MEDS ORDERED: DURAGESIC1 PATCH .7 TRANSDERM (14:47)
[2018-11-15] MEDS ORDERED: SENNA8.6 MG PO (14:47)
[2018-11-15] MEDS ORDERED: LINZESS145 MCG PO (14:47)
--- NOTE | 2018-11-15 16:13 | NUR ---
[facility] NOTIFIED OF PATIENT'S SCHEDULED DISCHARGE AT 10:30 A.M. MONDAY.
--- NOTE | 2018-11-15 18:40 | NUR ---
SPOKE WITH Brandyn MICHAEL APN, NEW ORDERS NOTED: LEVAQUIN 500 MG PO DAILY X 7 DAYS AND REPEAT CHEST X-RAY OF POSTERIOR CHEST MONDAY NOVEMBER 19, 2018.
[2018-11-15 20:00] VITALS: BP 154/78
--- NOTE | 2018-11-16 01:47 | NUR ---
B) Patient is alert and oriented to self, difficulty communication, patient will say yes when he really means no at times, I) Administered scheduled medications as ordered, monitored for safety R) Mediation compliant, resting in bed now, P) Continue plan of care.
--- NOTE | 2018-11-16 10:04 | NUR ---
PATIENT SITTING IN WHEELCHAIR IN DAY AREA WITH STAFF AND PEERS. NO ACUTE DISTRESS NOTED. PT DENIES ANY PAIN AT THIS TIME. DISCHARGE WEIGHT OBTAINED. PT CONTS ON LEVAQUIN 500 MG DAILY. NO S/SX NOTED FROM ANTIBIOTIC. CHAIR ALARM IN PLACE AND ACTIVE. WILL CONT PLAN OF CARE.
--- NOTE | 2018-11-16 10:20 | NUR ---
Tomer Cox RN and Huan SANTANAT assisted patient to his vehicle passenger side. All of his paperwork has been faxed to [facility] and did provide a hard copy for the spouse to take to the Home Care facility to give to Hospice. Called Hospice and let them know the patient is dc'd now from halfway.
--- NOTE | 2018-11-16 14:23 | PN ---
PATIENT:RIZWAN ADAMES MEDICAL RECORD: [id number] LOCATION:[facility] ADMISSION DATE: 11/05/18 PROGRESS NOTE DATE OF SERVICE: 11/15/2018 SUBJECTIVE: The patient's case was discussed with staff. He has no new complaint. OBJECTIVE: The patient denies intent to harm himself or others. He generally tolerates his medicines well. He is going to be discharged tomorrow as it appears he has reached maximum hospital benefit. He is going to be going to a personal long term and he is going to be followed on an outpatient basis by hospice. He has end-stage dementia. He has very severe arthritis and has a lot of pain in his back and joints and is very uncomfortable. ASSESSMENT: No change in diagnoses. PLAN: Current medications have been reviewed and will be maintained. His long-term prognosis is guarded. Follow up will be with hospice. TRANSINT:[id number] Voice Confirmation ID: [id number] DOCUMENT ID: [id number] KADE BENITES MD at 1423 CC: [id number] DICTATION DATE: 11/15/18 1447 RESEARCH COMPLIANCE SPECIALIST: 11/15/18 1528 DIS IN 11/16/18 [facility] [address] [place] [address]
--- NOTE | 2018-11-18 12:21 | DS ---
PATIENT:RIZWAN ADAMES :32 MEDICAL RECORD: [id number] DISCHARGE SUMMARY ADMISSION DATE: 11/05/18 DISCHARGE DATE: 11/16/18 IDENTIFYING DATA: The patient is 88 years old and he was admitted to the hospital on a voluntary basis secondary to confusion. The patient has a known history of dementia and has been living at home with his . He became angry and combative with her. She was so frightened she actually locked herself in the bathroom and had to call the police. The police responded. It was clear that he was impaired intellectually and they brought him to the Emergency Room instead of the group home. On interview, he does not remember what happened, seems distressed by it, and the emotions seem sincere. HOSPITAL COURSE: The patient was admitted to the hospital and evaluated from both a medical, psychological, and social standpoint. He was treated with both mood stabilizing and memory enhancing medications and showed an excellent response with regard to his mood lability and emotions, but as expected there was no real change in the underlying severity of his memory impairment. His found placement for him outside the home and he was subsequently transferred there. He will receive 11-qjqh-r-day supervision. DISCHARGE DIAGNOSES: AXIS I: Major neurocognitive disorder of the Alzheimer's type. AXIS II: None. AXIS III: Rheumatoid arthritis. AXIS IV: Moderate. AXIS V: Global assessment of functioning is 30. PLAN: At the time of discharge, the patient is not acutely dangerous to himself or others. He is tolerating his medicines well. He will be followed on an outpatient basis by his primary care physician. TRANSINT:[id number] Voice Confirmation ID: [id number] DOCUMENT ID: [id number] KADE BENITES MD at 1221 CC: [id number] DICTATION DATE: 11/16/18 1442 HOME AIDE: 11/17/18 0202 DIS IN 11/16/18 [id number] [place] [address]
== END 2018-11-16 10:20 | disposition home health service (06) | DRG 56 ==
LOC: D.ER 17:43 → D.PSYCH 20:55
PROVIDERS: Family Medicine; ADMIT Psychiatry & Neurology Psychiatry; ATTEND Psychiatry & Neurology Psychiatry
DX: G30.9 Alzheimer's disease, unspecified (principal); J18.1 Lobar pneumonia, unspecified organism; F02.81 Dementia in other diseases classified elsewhere, unspecified severity, with behavioral disturbance; M06.9 Rheumatoid arthritis, unspecified; F10.97 Alcohol use, unspecified with alcohol-induced persisting dementia; I10 Essential (primary) hypertension; M19.90 Unspecified osteoarthritis, unspecified site; D64.9 Anemia, unspecified; J44.9 Chronic obstructive pulmonary disease, unspecified; R53.1 Weakness; R13.12 Dysphagia, oropharyngeal phase; F41.8 Other specified anxiety disorders; K21.9 Gastro-esophageal reflux disease without esophagitis; K59.00 Constipation, unspecified; R63.0 Anorexia